=== PATIENT | male | born 1990 | race Caucasian/White ===

== ENCOUNTER 2017-09-05 20:24 | Emergency (ER) | payer SELFPAY ==
[~2017-09-05] VITALS: Ht 180.3 cm; Wt 82.0 kg
[~2017-09-05 20:24] MED LIST: ADDE30TA PO; BUPR2SUB SL; CLON1TAB PO
[2017-09-05 20:26] VITALS: BP 146/85; PULSE 91; RESP 16; TEMP 98.6; O2SAT 99
== END 2017-09-05 22:00 | disposition left against medical advice (07) ==
LOC: NED 20:24
DX: R10.9 Unspecified abdominal pain (principal)
CPT/HCPCS: 99281

== ENCOUNTER 2017-09-09 09:58 | Emergency (ER) | payer SELFPAY ==
[~2017-09-09] VITALS: Ht 180.3 cm; Wt 80.0 kg
[2017-09-09 10:00] VITALS: BP 133/76; PULSE 85; RESP 14; TEMP 97.7; O2SAT 100
[2017-09-09] MEDS ORDERED: SODIUM CHLORIDE 0.9% FLUSH 10 ML FLUSH IV FLUSH PRN (10:45)
--- NOTE | 2017-09-09 10:50 | PD ---
HPI Chief Complaint: Abdominal Pain Time Seen by Provider: 10:44 Travel History International Travel<30 days: No Contact w/Intl Traveler<30days: No Traveled to known affect area: No History of Present Illness HPI 26-year-old male patient with history of previous IV drug use, presents to the ER today for several weeks history of feeling like his eyes and skin turning yellow, light-colored stools, dark-colored urine, and currently complains of 5 out of 10 upper abdominal pain with intermittent vomiting although he has not had any vomiting today. He denies any fevers, diarrhea, or any other issues. Modifying Factors: None Associated Signs & Symptoms: Yellowing in the eyes and skin, light-colored stools, dark-colored urine, abdominal discomfort Risk Factors: IV drug use [facility] Social History Alcohol Use: No Tobacco Use: Yes (3 cig daily) Substance Use: Yes (HEROIN) Allergies-Medications (Allergen,Severity, Reaction): Uncoded Allergies: NYLOXIN (Allergy, Severe, Nausea/Vomiting, 03/09/15) Reported Meds & Prescriptions Reported Meds & Active Scripts Active Review of Systems Except as stated in HPI: all other systems reviewed are Neg Physical Exam Narrative GENERAL: Well-developed young male patient currently in no acute distress. Awake and oriented 3. SKIN: Focused skin assessment warm/dry. HEAD: Atraumatic. Normocephalic. EYES: Pupils equal and round. Mild scleral icterus. No injection or drainage. ENT: No nasal bleeding or discharge. Mucous membranes pink and moist. NECK: Trachea midline. No JVD. CARDIOVASCULAR: Regular rate and rhythm. No murmur appreciated. RESPIRATORY: No accessory muscle use. Clear to auscultation. Breath sounds equal bilaterally. GASTROINTESTINAL: Abdomen soft, non-tender, nondistended. Hepatic and splenic margins not palpable. MUSCULOSKELETAL: No obvious deformities. No clubbing. No cyanosis. No edema. NEUROLOGICAL: Awake and alert. No obvious cranial nerve deficits. Motor grossly within normal limits. Normal speech. PSYCHIATRIC: Appropriate mood and affect; insight and judgment normal. Data Data Last Documented VS Vital Signs Date Time Temp Pulse Resp B/P (MAP) Pulse Ox O2 Delivery O2 Flow Rate FiO2 09/09/17 10:00 97.7 85 14 133/76 (95) 100 Orders Orders Complete Blood Count With Diff (09/09/17 10:41) Comprehensive Metabolic Panel (09/09/17 10:41) Lipase (09/09/17 10:41) Iv Access Insert/Monitor (09/09/17 10:41) Ecg Monitoring (09/09/17 10:41) Oximetry (09/09/17 10:41) Sodium Chloride 0.9% Flush (Ns Flush) (09/09/17 10:45) Ct Abd/Pel W Iv Contrast(Rout) (09/09/17 12:25) Iohexol 350 Inj (Omnipaque 350 Inj) (09/09/17 13:29) Ed Discharge Order (09/09/17 13:46) Labs Laboratory Tests Test 09/09/17 11:40 White Blood Count 16.5 TH/MM3 Red Blood Count 6.54 MIL/MM3 Hemoglobin 16.8 GM/DL Hematocrit 50.7 % Mean Corpuscular Volume 77.6 FL Mean Corpuscular Hemoglobin 25.7 PG Mean Corpuscular Hemoglobin Concent 33.1 % Red Cell Distribution Width 19.1 % Platelet Count 355 TH/MM3 Mean Platelet Volume 9.5 FL Neutrophils (%) (Auto) 71.2 % Lymphocytes (%) (Auto) 16.3 % Monocytes (%) (Auto) 10.1 % Eosinophils (%) (Auto) 1.2 % Basophils (%) (Auto) 1.2 % Neutrophils # (Auto) 11.7 TH/MM3 Lymphocytes # (Auto) 2.7 TH/MM3 Monocytes # (Auto) 1.7 TH/MM3 Eosinophils # (Auto) 0.2 TH/MM3 Basophils # (Auto) 0.2 TH/MM3 CBC Comment DIFF FINAL Differential Comment Blood Urea Nitrogen 8 MG/DL Creatinine 1.14 MG/DL Random Glucose 51 MG/DL Total Protein 7.2 GM/DL Albumin 3.5 GM/DL Calcium Level 8.9 MG/DL Alkaline Phosphatase 215 U/L Aspartate Amino Transf (AST/SGOT) 942 U/L Alanine Aminotransferase (ALT/SGPT) 1749 U/L Total Bilirubin 12.4 MG/DL Sodium Level 139 MEQ/L Potassium Level 3.2 MEQ/L Chloride Level 106 MEQ/L Carbon Dioxide Level 24.6 MEQ/L Anion Gap 8 MEQ/L Estimat Glomerular Filtration Rate 76 ML/MIN Lipase 178 U/L MDM Medical Decision Making Medical Screen Exam Complete: Yes Emergency Medical Condition: Yes Medical Record Reviewed: Yes Interpretation(s) Laboratory Tests Test 09/09/17 11:40 White Blood Count 16.5 TH/MM3 (4.0-11.0) Red Blood Count 6.54 MIL/MM3 (4.50-5.90) Mean Corpuscular Volume 77.6 FL (80.0-100.0) Mean Corpuscular Hemoglobin 25.7 PG (27.0-34.0) Red Cell Distribution Width 19.1 % (11.6-17.2) Neutrophils (%) (Auto) 71.2 % (16.0-70.0) Monocytes (%) (Auto) 10.1 % (0.0-8.0) Neutrophils # (Auto) 11.7 TH/MM3 (1.8-7.7) Monocytes # (Auto) 1.7 TH/MM3 (0-0.9) Random Glucose 51 MG/DL (74-106) Alkaline Phosphatase 215 U/L (45-117) Aspartate Amino Transf (AST/SGOT) 942 U/L (15-37) Alanine Aminotransferase (ALT/SGPT) 1749 U/L (12-78) Total Bilirubin 12.4 MG/DL (0.2-1.0) Potassium Level 3.2 MEQ/L (3.5-5.1) Estimat Glomerular Filtration Rate 76 ML/MIN (>89) Differential Diagnosis Hepatic failure versus metabolic issues versus hepatitis versus biliary obstruction Narrative Course Lab work shows significant LFT elevations and bilirubin elevations concerning for possible underlying hepatitis considering his IV drug use history. CAT scan was done and it did not show any signs of acute intra-abdominal processes. Patient's vital signs are stable in the ER and he is conversant without issues. At this point, I have taught him regarding findings and I have recommended that he follows up further with primary care physician and GI for further evaluation of his liver. He should avoid any alcohol or use of Tylenol. Return for any worsening in abdominal pain, vomiting, or new symptoms as needed. The plan has been discussed with him he states understanding. Diagnosis Primary Impression: Abnormal liver enzymes Referrals: Camacho Campos MD Scripts No Active Prescriptions or Reported Meds Disposition: 01 DISCHARGE HOME Condition: Stable Joe Syed MD Sep 09, 2017 10:50
[2017-09-09 12:20] LABS: AUTOMATED NEUTROPHIL # 11.7 TH/MM3 (1.8-7.7); BASOPHIL # 0.2 TH/MM3 (0-0.2); BASOPHIL % 1.2 % (0.0-2.0); EOSINOPHIL # 0.2 TH/MM3 (0-0.4); EOSINOPHIL % 1.2 % (0.0-4.0); HEMATOCRIT 50.7 % (39.0-51.0); HEMOGLOBIN 16.8 GM/DL (13.0-17.0); LYMPH % 16.3 % (9.0-44.0); LYMPHOCYTE # 2.7 TH/MM3 (1.0-4.8); MEAN CELL VOLUME 77.6 FL (80.0-100.0); MEAN CORPUSCULAR HEMOGLOBIN 25.7 PG (27.0-34.0); MEAN CORPUSCULAR HGB CONC 33.1 % (32.0-36.0); MEAN PLATELET VOLUME 9.5 FL (7.0-11.0); MONO % 10.1 % (0.0-8.0); MONOCYTE # 1.7 TH/MM3 (0-0.9); NEUT % 71.2 % (16.0-70.0); PLATELET COUNT 355 TH/MM3 (150-450); RED BLOOD COUNT 6.54 MIL/MM3 (4.50-5.90); RED CELL DISTRIBUTION WIDTH 19.1 % (11.6-17.2); WHITE BLOOD COUNT 16.5 TH/MM3 (4.0-11.0)
[2017-09-09 12:50] LABS: ALBUMIN 3.5 GM/DL (3.4-5.0); ALKALINE PHOSPHATASE 215 U/L (45-117); ALT (GPT) 1749 U/L (12-78); AST (GOT) 942 U/L (15-37); BICARBONATE 24.6 MEQ/L (21.0-32.0); BLOOD UREA NITROGEN 8 MG/DL (7-18); CALCIUM 8.9 MG/DL (8.5-10.1); CHLORIDE 106 MEQ/L (98-107); CREATININE 1.14 MG/DL (0.60-1.30); GLOMERULAR FILTRATION RATE 76 ML/MIN (>89); GLUCOSE,RANDOM 51 MG/DL (74-106); SODIUM (NA) 139 MEQ/L (136-145); TOTAL BILIRUBIN ADULT 12.4 MG/DL (0.2-1.0); TOTAL PROTEIN 7.2 GM/DL (6.4-8.2)
[2017-09-09] MEDS ORDERED: IOHEXOL 350 MG/ML 10 ML VIAL (for RAD DIAG) IVCONTRAST ONE (13:29)
--- NOTE | 2017-09-09 13:41 | RADRPT ---
EXAM DATE/TIME: 09/09/2017 13:24 [facility] COMPARISON: No previous studies available for comparison. INDICATIONS : Abdominal pain for two weeks, jaundice, dark urine for two weeks. IV CONTRAST: 92 cc Omnipaque 350 (iohexol) IV ORAL CONTRAST: No oral contrast ingested. RADIATION DOSE: 6.64 CTDIvol (mGy) MEDICAL HISTORY : None SURGICAL HISTORY : None. ENCOUNTER: Initial ACUITY: 1 day PAIN SCALE: 6/10 LOCATION: general abdomen TECHNIQUE: Volumetric scanning of the abdomen and pelvis was performed. Using automated exposure control and ad justment of the mA and/or kV according to patient size, radiation dose was kept as low as reasonably achievable to obtain optimal diagnostic quality images. DICOM format image data is available electro nically for review and comparison. FINDINGS: LOWER LUNGS: The visualized lower lungs are clear. LIVER: Homogeneous density without lesion. There is no dilation of the biliary tree. No calcified gallston es. SPLEEN: Normal size without lesion. PANCREAS: Within normal limits. KIDNEYS: Normal in size and shape. There is no mass, stone or hydronephrosis. ADRENAL GLANDS: Within normal limits. VASCULAR: There is no aortic aneurysm. BOWEL/MESENTERY: The stomach, small bowel, and colon demonstrate no acute abnormality. There is no free intraperitone al air or fluid. ABDOMINAL WALL: Within normal limits. RETROPERITONEUM: There is no lymphadenopathy. BLADDER: No wall thickening or mass. REPRODUCTIVE: Within normal limits. INGUINAL: There is no lymphadenopathy or hernia. MUSCULOSKELETAL: Within normal limits for patient age. CONCLUSION: 1. Negative examination. Juan Jose Darling MD on September 09, 2017 at 13:37 Board Certified Radiologist. This report was verified electronically.
== END 2017-09-09 14:08 | disposition home or self-care (01) ==
LOC: NEPE 09:58
DX: R74.8 Abnormal levels of other serum enzymes (principal); Z72.0 Tobacco use
CPT/HCPCS: 74177; 80053; 83690; 85025; 99284; Q9967